=== PATIENT | female | born 1980 | race Caucasian/White ===

== ENCOUNTER 2018-02-12 20:23 | Emergency (ER) | payer BC, OTHER ==
[~2018-02-12] VITALS: Ht 162.6 cm; Wt 71.9 kg
[2018-02-12 20:31] VITALS: TEMP 37; O2SAT 99; Ht 162.6 cm; Wt 71.9 kg
[2018-02-12 22:30] LABS: BASO % 0.2 %; BASO ABS # 0.02 K/uL (0-0.2); EOS % 0.3 %; EOS ABS # 0.04 K/uL (0-0.5); HEMATOCRIT 38.5 % (37-47); HEMOGLOBIN 13.8 g/dL (12.0-16.0); IG# 0.04 K/uL (0.00-0.02); LYMPH % 20.5 %; LYMPH ABS # 2.38 K/uL (1.2-3.4); MEAN CORPUSCULAR HEMOGLOBIN 32.6 pg (25-34); MEAN CORPUSCULAR HGB CONC 35.8 g/dl (32-36); MONO % 6.5 %; MONO ABS # 0.76 K/uL (0.11-0.59); NEUT % 72.2 %; NEUT ABS # 8.37 K/uL (1.4-6.5); PLATELET COUNT 254 K/uL (130-400); RED CELL DISTRIBUTION WIDTH CV 12.5 % (11.5-14.5); RED CELL DISTRIBUTION WIDTH SD 41.7 fL (36.4-46.3); WHITE BLOOD COUNT 11.61 K/uL (4.8-10.8)
--- NOTE | 2018-02-12 22:48 | DIAGNOSTIC IMAGING REPORT ---
KUB CLINICAL HISTORY: eval for glass fb, possibly swallowed glass COMPARISON STUDY: None. FINDINGS: The bowel gas pattern is normal. Pelvic calcifications likely reflect phleboliths. Intrauterine device projects more superiorly than expected. A 7 mm density projects over the stomach. There may be an adjacent radiodensity is well. IMPRESSION: 1. 2 radiodensities which project over the stomach. These are indeterminate and may be related to the posterior left 11th rib. Ingested foreign bodies are considered unlikely but could appear similar. 2. Intrauterine device which projects more superiorly than expected. This is likely within normal limits although a pelvic ultrasound could be performed as indicated. Electronically signed by: Gigi Alejandre M.D. 02/12/2018 10:46 PM Dictated Date/Time: 02/12/2018 10:43 PM
[2018-02-12 22:50] VITALS: BP 116/92; PULSE 78
[2018-02-12 22:50] LABS: ALBUMIN 4.3 gm/dl (3.4-5.0); CREATININE 0.95 mg/dl (0.60-1.20); POTASSIUM 3.2 mmol/L (3.5-5.1)
[2018-02-12 22:53] LABS: TOTAL PROTEIN 8.4 gm/dl (6.4-8.2)
--- NOTE | 2018-02-12 23:55 | DIAGNOSTIC IMAGING REPORT ---
CT OF THE ABDOMEN AND PELVIS WITHOUT CONTRAST CLINICAL HISTORY: eval for ingested fb, ?fb on kub COMPARISON STUDY: KUB performed earlier today. TECHNIQUE: Axial images of the abdomen and pelvis were obtained without IV contrast. Images were reviewed in the axial, sagittal, and coronal planes. A dose lowering technique was utilized adhering to the principles of ALARA. FINDINGS: No pneumatosis, free air or portal venous gas is present. No radiopaque foreign bodies are identified within the abdomen or the pelvis. The possible abnormality on prior KUB was artifactual. Intrauterine device is appropriately positioned. There is no evidence for a bowel obstruction. The appendix is normal. Unenhanced images of liver, spleen, adrenal glands, kidneys and pancreas are unremarkable. There is no ascites or lymphadenopathy. There are no suspicious skeletal lesions. IMPRESSION: 1. No radiopaque foreign body within the abdomen or pelvis. The possible foreign bodies shown on prior KUB were artifactual. 2. No acute process within the abdomen or pelvis on unenhanced exam. 3. Appropriately positioned IUD. Electronically signed by: Gigi Alejandre M.D. 02/12/2018 11:54 PM Dictated Date/Time: 02/12/2018 11:49 PM
[2018-02-13] MEDS ORDERED: MULT-506 PO (00:01)
--- NOTE | 2018-02-13 00:07 | EMERGENCY ROOM VISIT NOTE ---
History First contact with patient: 21:13 Chief Complaint: OTHER COMPLAINT Stated Complaint: DIZZINESS History of Present Illness The patient is a 37 year old female who presents to the Emergency Room with complaints of lightheadedness which began approximately 2 hours ago. The patient reports that she began to feel dizzy/lightheaded after eating dinner this evening. She states that when she made her dinner, the lid on the pot tract from the heat. The glass cracked into large pieces, but she is unsure if there could have been an additional small piece of glass present. She states that she has had persistent lightheadedness which is worse when she is standing up or walking. She does not feel like she is going to pass out. She states that the room is not spinning. She states this is a similar feeling that she has had after receiving a shot or getting a piercing. She reports some mild epigastric discomfort consistent with her heartburn. She denies shortness of breath, chest pain, difficulty swallowing, pain with swallowing or foreign body sensation in her throat. She denies nausea/vomiting. Review of Systems A complete 10 point review of systems was reviewed with the patient with pertinent positives and negatives as per history of present illness. All else were negative. Social History Smoking Status: Never Smoker Current/Historical Medications Scheduled Multivitamin (Multivitamin), 1 TAB PO DAILY Physical Exam Vital Signs Date Time Temp Pulse Resp B/P (MAP) Pulse Ox O2 Delivery O2 Flow Rate FiO2 02/12/18 22:50 78 118/71 84 130/80 78 116/92 02/12/18 20:31 37.0 80 18 133/85 99 Room Air Physical Exam VITALS: Vitals are noted on the nurse's note and reviewed by myself. Vital signs stable. GENERAL: This is a 37-year-old female, in no acute distress, nondiaphoretic, well-developed well-nourished. HEAD: Normocephalic atraumatic. EARS: External auditory canals clear, tympanic membranes pearly garvey without erythema or effusion bilaterally. EYES: Pupils equal round and reactive to light and accommodation. Extraocular movements intact. MOUTH: Mucous membranes moist. Tonsils are not enlarged. Pharynx without erythema or exudate. NECK: Supple without nuchal rigidity. HEART: Regular rate and rhythm without murmurs gallops or rubs. LUNGS: Clear to auscultation bilaterally without wheezes, rales or rhonchi. No dullness to percussion. ABDOMEN: Positive bowel sounds x 4. Soft, nontender, without masses or organomegaly. No guarding or rebound tenderness. MUSCULOSKELETAL: Strength 5/5 throughout. NEURO: Patient was alert and oriented to person place and time. No focal neurological deficits. Medical Decision & Procedures ER Provider Diagnostic Interpretation: KUB FINDINGS: The bowel gas pattern is normal. Pelvic calcifications likely reflect phleboliths. Intrauterine device projects more superiorly than expected. A 7 mm density projects over the stomach. There may be an adjacent radiodensity is well. IMPRESSION: 1. 2 radiodensities which project over the stomach. These are indeterminate and may be related to the posterior left 11th rib. Ingested foreign bodies are considered unlikely but could appear similar. 2. Intrauterine device which projects more superiorly than expected. This is likely within normal limits although a pelvic ultrasound could be performed as indicated. CT OF THE ABDOMEN AND PELVIS WITHOUT CONTRAST FINDINGS: No pneumatosis, free air or portal venous gas is present. No radiopaque foreign bodies are identified within the abdomen or the pelvis. The possible abnormality on prior KUB was artifactual. Intrauterine device is appropriately positioned. There is no evidence for a bowel obstruction. The appendix is normal. Unenhanced images of liver, spleen, adrenal glands, kidneys and pancreas are unremarkable. There is no ascites or lymphadenopathy. There are no suspicious skeletal lesions. IMPRESSION: 1. No radiopaque foreign body within the abdomen or pelvis. The possible foreign bodies shown on prior KUB were artifactual. 2. No acute process within the abdomen or pelvis on unenhanced exam. 3. Appropriately positioned IUD. Electronically signed by: Gigi Alejandre M.D. Laboratory Results 02/12/18 22:10 Red Blood Count 4.23, Mean Corpuscular Volume 91.0, Mean Corpuscular Hemoglobin 32.6, Mean Corpuscular Hemoglobin Concent 35.8, Mean Platelet Volume 10.0, Neutrophils (%) (Auto) 72.2, Lymphocytes (%) (Auto) 20.5, Monocytes (%) (Auto) 6.5, Eosinophils (%) (Auto) 0.3, Basophils (%) (Auto) 0.2, Neutrophils # (Auto) 8.37, Lymphocytes # (Auto) 2.38, Monocytes # (Auto) 0.76, Eosinophils # (Auto) 0.04, Basophils # (Auto) 0.02 02/12/18 22:10 Test 02/12/18 21:41 02/12/18 22:10 02/12/18 22:45 Urine Test NEG (NEG) White Blood Count 11.61 K/uL (4.8-10.8) Red Blood Count 4.23 M/uL (4.2-5.4) Hemoglobin 13.8 g/dL (12.0-16.0) Hematocrit 38.5 % (37-47) Mean Corpuscular Volume 91.0 fL (80-100) Mean Corpuscular Hemoglobin 32.6 pg (25-34) Mean Corpuscular Hemoglobin Concent 35.8 g/dl (32-36) Platelet Count 254 K/uL (130-400) Mean Platelet Volume 10.0 fL (7.4-10.4) Neutrophils (%) (Auto) 72.2 % Lymphocytes (%) (Auto) 20.5 % Monocytes (%) (Auto) 6.5 % Eosinophils (%) (Auto) 0.3 % Basophils (%) (Auto) 0.2 % Neutrophils # (Auto) 8.37 K/uL (1.4-6.5) Lymphocytes # (Auto) 2.38 K/uL (1.2-3.4) Monocytes # (Auto) 0.76 K/uL (0.11-0.59) Eosinophils # (Auto) 0.04 K/uL (0-0.5) Basophils # (Auto) 0.02 K/uL (0-0.2) RDW Standard Deviation 41.7 fL (36.4-46.3) RDW Coefficient of Variation 12.5 % (11.5-14.5) Immature Granulocyte % (Auto) 0.3 % Immature Granulocyte # (Auto) 0.04 K/uL (0.00-0.02) Anion Gap 7.0 mmol/L (3-11) Est Creatinine Clear Calc Drug Dose 79.6 ml/min Estimated GFR () 89.3 Estimated GFR (Non- 77.1 BUN/Creatinine Ratio 12.2 (10-20) Calcium Level 9.0 mg/dl (8.5-10.1) Total Bilirubin 0.3 mg/dl (0.2-1) Aspartate Amino Transf (AST/SGOT) 18 U/L (15-37) Alanine Aminotransferase (ALT/SGPT) 21 U/L (12-78) Alkaline Phosphatase 77 U/L (45-117) Total Protein 8.4 gm/dl (6.4-8.2) Albumin 4.3 gm/dl (3.4-5.0) Globulin 4.1 gm/dl (2.5-4.0) Albumin/Globulin Ratio 1.1 (0.9-2) Urine Color YELLOW Urine Appearance CLEAR (CLEAR) Urine pH 6.0 (4.5-7.5) Urine Specific Olive 1.009 (1.000-1.030) Urine Protein NEG (NEG) Urine Glucose (UA) NEG (NEG) Urine Ketones NEG (NEG) Urine Occult Blood NEG (NEG) Urine Nitrite NEG (NEG) Urine Bilirubin NEG (NEG) Urine Urobilinogen NEG (NEG) Urine Leukocyte Esterase NEG (NEG) ECG Per My Interpretation Indication: other Rate (beats per minute): 84 Rhythm: normal sinus Findings: no acute ischemic change, no ectopy, other (right ventricular conduction delay) Comparison ECG Date: no prior available ED Course The patient was evaluated as above. Labs were drawn and IV access was obtained. KUB was performed and read by radiology as above. KUB shows possible foreign body. Dr. Dotson of gastroenterology was consulted and the case was discussed with him. He personally reviewed the x-ray and spoke with the radiologist. He recommended noncontrast CT for further evaluation to determine whether the densities do represent foreign body. CT was performed and was read by radiology with no obvious foreign body. The prior densities were believed to be artifact. I again spoke with Dr. dotson, who recommended discharging the patient in having her return immediately if she has any worsening or new/concerning symptoms. The patient was reevaluated and states that all of her symptoms have completely resolved. She is ready for discharge. Discharge instructions were reviewed with the patient. The patient verbalized understanding of my assessment and treatment plan and was discharged home in good condition. Medical Decision Differential diagnosis includes ingested foreign body, anxiety, cardiac arrhythmia, infection, among others. The patient is a 37-year-old female who presents today complaining of lightheadedness after possible ingestion of foreign body. KUB initially suggested a possible foreign body within the stomach, however when CT was performed for clarification this appeared to be artifact. Labs revealed minimal leukocytosis with no other significant findings. Urinalysis was not suggestive of infection. Urine was negative. EKG was interpreted by myself and shows no ischemic changes or arrhythmias. The patient's symptoms completely resolved without treatment. She understands to return for worsening symptoms. Based on the patient's presentation and work up, I feel the patient is stable for outpatient treatment. The patient was educated to return to the emergency department for any worsening of their current condition or new/concerning symptoms. She will follow up with her PCP. Medication Reconcilliation Current Medication List: was personally reviewed by me Blood Pressure Screening Patient's blood pressure: Normal blood pressure Impression Primary Impression: Lightheadedness Additional Impression: Possible inested foreign body Departure Information Dispostion Home / Self-Care Condition GOOD Referrals No Doctor, Assigned (PCP) Patient Instructions My [facility] Additional Instructions Return to the emergency department if you have any abdominal pain, nausea/ vomiting, rectal bleeding or other new/concerning symptoms. Your CT scan did not show any evidence of a foreign body. Rest and drink plenty of fluids. As with any visit to the emergency department, you should follow-up with your primary care provider for a recheck. Problem Qualifiers
== END 2018-02-13 00:16 | disposition home or self-care (01) ==
LOC: C.EDB 20:24 → C.EDD 02-13 00:16
DX: Z03.89 Encounter for observation for other suspected diseases and conditions ruled out (principal); R42 Dizziness and giddiness